=== PATIENT | female | born 1945 | race Caucasian/White ===

== ENCOUNTER 2017-07-01 17:03 | Inpatient (IN) | payer MEDICARE, BC ==
[~2017-07-01] VITALS: Ht 154.9 cm; Wt 46.3 kg
[2017-07-01] MEDS ORDERED: ONDANSETRON HCL/PF 4 MG/2 ML VIAL ONE (17:38)
[2017-07-01] MEDS ORDERED: MORPHINE SULFATE INJ 2 MG/ML DISP.SYRIN ONE (17:39)
--- NOTE | 2017-07-01 17:45 | NUR ---
PT REFUSES ALL MD ORDERS AND WANTS TO GO TO [facility]. MADE AWARE.
[2017-07-01] MEDS ORDERED: ONDANSETRON HCL/PF - ER 4 MG/2 ML VIAL IV ONE (18:00)
[2017-07-01] MEDS ORDERED: IV NS 0.9% 1,000 ML BAG IV ONE (18:00)
[2017-07-01] MEDS ORDERED: MORPHINE SULFATE INJ 2 MG/ML DISP.SYRIN IV ONE (18:00)
--- NOTE | 2017-07-01 18:10 | NUR ---
LAURA AT BS.
--- NOTE | 2017-07-01 18:18 | NUR ---
refused dvt study,dr medina aware
--- NOTE | 2017-07-01 18:20 | NUR ---
refused blood draw,dr medina aware
--- NOTE | 2017-07-01 18:42 | NUR ---
PAGEConstantine MONTE FOR CALL BACK TO [facility]
--- NOTE | 2017-07-01 18:59 | NUR ---
CALLED CHIVO AT [facility]. INFORMED HER DR MONTE IS WILLING TO ACCEPT PT AT [facility]. WAITING FOR CALL BACK.
--- NOTE | 2017-07-01 19:32 | NUR ---
PT REPORT RECIEVED FROM FELICITY HINKLE, PT ON MONITOR, IV PLACED AND LABS DRAWN LAB CALLED TO SALESPERSON [facility], PT FAMILY AT BEDSIDE, VSS WILL CONTINUE TO MONITOR.
--- NOTE | 2017-07-01 19:52 | NUR ---
PAGED ORTHO DISPLAY SPECIALIST DR RAMOS
--- NOTE | 2017-07-01 20:19 | NUR ---
LAB STATES BLOOD WAS NEVER RECIVED, PT REDRAWN AND LABS HANDED TO LAB WILL CONTINUE TO MONITOR.
--- NOTE | 2017-07-01 20:20 | NUR ---
PT STATES UNABLE TO PROVIDE URINE. PT REFUSES JENKINS. AWARE.
[2017-07-01] MEDS ORDERED: MAG HYDROX/AL HYDROX/SIMETH 30 ML UDC PO PRN (20:30)
[2017-07-01] MEDS ORDERED: MAGNESIUM HYDROXIDE 30 ML UDC PO PRN (20:30)
[2017-07-01] MEDS ORDERED: ONDANSETRON HCL/PF 4 MG/2 ML VIAL IVP PRN (20:30)
[2017-07-01] MEDS ORDERED: ACETAMINOPHEN 325 MG TABLET PO PRN (20:30)
[2017-07-01] MEDS ORDERED: Z GUARD REMEDY 2 OZ OINT TP PRN (20:30)
[2017-07-01] MEDS ORDERED: ZOLPIDEM TARTRATE 5 MG TABLET PO PRN (20:30)
[2017-07-01 20:31] LABS: BASOPHILS # (AUTO) 0.5 /CMM (0.0-0.2); BASOPHILS % (AUTO) 3.1 % (0.0-2.0); EOSINOPHILS # (AUTO) 0.2 /CMM (0.0-0.7); EOSINOPHILS % (AUTO) 1.2 % (0.0-6.0); HEMATOCRIT 42 % (33-45); HEMOGLOBIN 13.4 g/dL (11.5-14.8); LYMPHOCYTES # (AUTO) 0.6 /CMM (0.8-4.8); LYMPHOCYTES % (AUTO) 3.9 % (20.0-44.0); MEAN CORPUSCULAR HEMOGLOBIN 32 PG (26.0-33.0); MEAN CORPUSCULAR HGB CONC 32 g/dl (31.0-36.0); MEAN CORPUSCULAR VOLUME 99 fL (82-100); MONOCYTES # (AUTO) 1.3 /CMM (0.1-1.30); MONOCYTES % (AUTO) 8.5 % (2.0-12.0); NEUTROPHILS # (AUTO) 12.9 /CMM (1.8-8.9); NEUTROPHILS % (AUTO) 83.3 % (43.0-81.0); PLATELET COUNT (AUTO) 314 /CMM (150-450); RDW COEFFICIENT OF VARIATION 15.6 (11.5-15.0); RED BLOOD CELL COUNT(AUTO) 4.18 MIL/uL (4.0-5.2); WHITE BLOOD COUNT (AUTO) 15.5 K/uL (4.3-11.0)
[2017-07-01 20:49] LABS: CALCIUM, SERUM 8.5 mg/dL (8.5-10.1); CARBON DIOXIDE 30 mmol/L (21-32); CHLORIDE 89 mmol/L (98-107); CREATININE 1.5 mg/dL (0.6-1.3); GLUCOSE 105 mg/dL (74-106); POTASSIUM 4.7 mmol/L (3.5-5.1); SODIUM SERUM 125 mmol/L (136-145); UREA NITROGEN, BLOOD 43 mg/dL (7-18)
[2017-07-01 20:55] LABS: ALANINE AMINOTRANSFERASE 24 U/L (12-78); ALBUMIN 3.3 g/dL (3.4-5.0); ALKALINE PHOSPHATASE 116 U/L (46-116); ASPARTATE AMINOTRANSFERASE 33 U/L (15-37); BILIRUBIN,DIRECT 0.1 mg/dL (0.0-0.2); BILIRUBIN,TOTAL 0.5 mg/dL (0.2-1.0); LIPASE 225 U/L (73-393); TOTAL PROTEIN, SERUM 6.7 g/dL (6.4-8.2)
--- NOTE | 2017-07-01 21:16 | NUR ---
TELE 304-1
[2017-07-01 21:30] VITALS: BP 98/67
--- NOTE | 2017-07-01 21:30 | NUR ---
RN NOTES RECEIVED NEW ADMISSION FROM ER VIA [facility], ASSISTED BY 2 PERSONS, ALERT AND ORIENTED X3, WITH EPISODE OF FORGETFULNESS, WITH ACUTE DISTRESS FROM RIGHT HIP PAIN, NO SOB, NO RESPIRATORY DISTRESS, TOLERATING 2LPM VIA NC, 02 SAT 94%, LUNG SOUNDS ARE CLEAR, ABDOMEN SOFT AND NON-TENDER, ACTIVE BOWEL SOUNDS. PER PATIENT FELL DOWN 2 DAYS AGO WHEN GOING TO THE TOILET, FELL DOWN TO RIGHT SIDE. RIGHT LEG SHORTER THAN LEFT LEG, SCREAMS IN PAIN WHEN TURNING AND MOVING. EXPLAINED TO PATIENT WILL NEED JENKINS CATHETER TO MINIMIZE MOVEMENT TO RIGHT HIP. DR. LEMON AWARE OF ADMISSION, HAS RIGHT LOWER QUADRANT INFUSION PUMP WITH REMODULIN FOR PULMONARY ARTERIAL HYPERTENSION, NO OTHER HOME MEDICATION. NOTED RASHES TO FACE DOWN TO NECK, PER PATIENT FROM ALLERGIES TO MEDICATIONS, UNABLE TO SPECIFY. ORIENTED TO ROOM AND USE OF CALL LIGHT. WILL CONTINUE TO MONITOR.
[2017-07-01 22:00] VITALS: BP 98/67
[2017-07-01] MEDS ORDERED: IV NS 0.9% 1,000 ML BAG IV PRN (23:30)
[2017-07-01] MEDS: IV NS 0.9% 1,000 ML IV PRN (23:47)
--- NOTE | 2017-07-02 00:13 | NUR ---
RN NOTES JENKINS CATHETER FR 16 INSERTED, URINE OUTPUT OF 250 CC, CLEAR AND YELLOW URINE, PROCEDURE TOLERATED WELL.
[2017-07-02] MEDS ORDERED: MORPHINE SULFATE INJ 2 MG/ML DISP.SYRIN ONE (05:30)
[2017-07-02] MEDS: MORPHINE SULFATE INJ 2 MG/ML DISP.SYRIN IV PRN ×3 (05:32→14:56)
--- NOTE | 2017-07-02 05:51 | NUR ---
RN NOTES COMPLAINING OF PAIN OF 9/10 TO RIGHT HIP, GIVEN MORPHINE 2 MG IVP PRN, ON NC AT 2LPM, V/S WNL, WILL CONTINUE TO MONITOR.
[2017-07-02 05:52] VITALS: BP 105/71
--- NOTE | 2017-07-02 06:39 | NUR ---
RN NOTES PATIENT AWAKE AND ALERT, NO SOB, TOLERATING 2LPM VIA NC, PROVIDED PAIN MEDICATION FOR PAIN IN RIGHT HIP OF 10 AFTER MORPHINE PAIN WENT DOWN TO 7/10, COMPLAINING OF PAIN WHEN MOVING OR BEING TURNED. LEFT FA PERIPHERAL LINE IS PATENT AND INFUSING WELL WITH NS AT 100 CC/HR, JENKINS CATHETER DRAINING WELL, NEEDS ATTENDED, CALL LIGHT WITHIN REACH.
[2017-07-02 06:48] LABS: BASOPHILS # (AUTO) 0.1 /CMM (0.0-0.2); BASOPHILS % (AUTO) 0.5 % (0.0-2.0); EOSINOPHILS # (AUTO) 0.3 /CMM (0.0-0.7); EOSINOPHILS % (AUTO) 2.1 % (0.0-6.0); HEMATOCRIT 39 % (33-45); HEMOGLOBIN 12.7 g/dL (11.5-14.8); LYMPHOCYTES # (AUTO) 0.5 /CMM (0.8-4.8); LYMPHOCYTES % (AUTO) 3.6 % (20.0-44.0); MEAN CORPUSCULAR HEMOGLOBIN 33 PG (26.0-33.0); MEAN CORPUSCULAR HGB CONC 33 g/dl (31.0-36.0); MEAN CORPUSCULAR VOLUME 100 fL (82-100); MONOCYTES # (AUTO) 1.2 /CMM (0.1-1.30); MONOCYTES % (AUTO) 9.2 % (2.0-12.0); NEUTROPHILS # (AUTO) 10.8 /CMM (1.8-8.9); NEUTROPHILS % (AUTO) 84.6 % (43.0-81.0); PLATELET COUNT (AUTO) 271 /CMM (150-450); RDW COEFFICIENT OF VARIATION 16.6 (11.5-15.0); WHITE BLOOD COUNT (AUTO) 12.8 K/uL (4.3-11.0)
[2017-07-02 07:12] LABS: CALCIUM, SERUM 7.9 mg/dL (8.5-10.1); CARBON DIOXIDE 29 mmol/L (21-32); CHLORIDE 93 mmol/L (98-107); CREATININE 1.4 mg/dL (0.6-1.3); GLUCOSE 96 mg/dL (74-106); MAGNESIUM 2.4 mg/dL (1.8-2.4); PHOSPHORUS 4.7 mg/dL (2.5-4.9); POTASSIUM 5.2 mmol/L (3.5-5.1); SODIUM SERUM 130 mmol/L (136-145); UREA NITROGEN, BLOOD 39 mg/dL (7-18)
--- NOTE | 2017-07-02 07:30 | NUR ---
MS RN RECEIVED ON BED, AWAKE,ALERT,ORIENTED X3, NOT IN ANY FORM OF DISTRESS, AT BEDSIDE, REFUSING TO BE TURNED, S/P RIGHT HIP FX, DENIES PAIN AT THIS TIME, NOTED TO HAVE A MED INFUSION PUMP AT RIGHT UPPER ABDOMEN, JENKINS TO GRAVITY DRAINING YELLOWISH URINE OUTPUT, WILL MONITOR PATIENT'S CONDITION.
[2017-07-02 07:40] LABS: CHOLESTEROL 140 mg/dL (<200); HDL CHOLESTEROL 45 mg/dL (40-60); LDL 75 mg/dL (0-99); TRIGLYCERIDES 92 mg/dL (30-150)
[2017-07-02 08:00] VITALS: BP 99/59
--- NOTE | 2017-07-02 09:00 | NUR ---
ms barraza npo at this time, due meds given,tolerated well.
[2017-07-02] MEDS: IV NS 0.9% 1,000 ML IV PRN (09:31)
--- NOTE | 2017-07-02 11:00 | NUR ---
ms popped corn oven attendant on the case, family [facility].
[2017-07-02] MEDS: FUROSEMIDE 20 MG/2 ML VIAL IV SCH (11:07)
[2017-07-02] MEDS ORDERED: HYDR-3326 PO (11:19)
[2017-07-02] MEDS ORDERED: Morphine Sulfate Inj IV (11:19)
[2017-07-02] MEDS ORDERED: FLUT16SP16 NS (11:50)
[2017-07-02] MEDS ORDERED: ACET-73 PO (11:50)
[2017-07-02] MEDS ORDERED: CEPH500C2 PO (11:50)
[2017-07-02] MEDS ORDERED: FURO20TA4 PO (11:50)
[2017-07-02] MEDS ORDERED: DOCU-170 PO (11:50)
[2017-07-02] MEDS ORDERED: FOLI1TAB16 PO (11:50)
[2017-07-02] MEDS ORDERED: CEVI30CA4 PO (11:50)
[2017-07-02] MEDS ORDERED: HYDR-552 PO (11:50)
[2017-07-02] MEDS ORDERED: HYDR200T4 PO (11:50)
[2017-07-02] MEDS ORDERED: BENZ-13 PO (11:50)
[2017-07-02 11:53] LABS: CREATININE, URINE 41.2 MG/DL (30.0-125.0)
[2017-07-02 11:58] LABS: URINE SODIUM, RANDOM < 5 mmol/l (40-220)
--- NOTE | 2017-07-02 12:00 | NUR ---
ms barraza waiting for dr. desouza to see the patient. Addendum: 07/02/17 at 1605 by MYLA JEROME RN wrong patient entry.
[2017-07-02] MEDS ORDERED: POTA10CA43 PO (12:01)
[2017-07-02] MEDS ORDERED: OMEP20CA10 PO (12:01)
[2017-07-02] MEDS ORDERED: METO2.5T2 PO (12:01)
[2017-07-02] MEDS ORDERED: TREP1VIA IJ (12:01)
[2017-07-02] MEDS ORDERED: LEVO50TA8 PO (12:01)
[2017-07-02] MEDS ORDERED: ONDA4TAB5 PO (12:01)
[2017-07-02] MEDS ORDERED: NYST5ORA MM (12:01)
[2017-07-02] MEDS ORDERED: MACI10TA PO (12:01)
[2017-07-02] MEDS ORDERED: SPIR50TA3 PO (12:05)
[2017-07-02] MEDS ORDERED: TADA20TA31 PO (12:05)
[2017-07-02] MEDS ORDERED: VALA500T35 PO (12:05)
--- NOTE | 2017-07-02 13:00 | NUR ---
ornamental rail installer working on the transfer.
--- NOTE | 2017-07-02 13:00 | NUR ---
ms madi desouza came to see patient w/ order to go home today. prescription given to patient. Addendum: 07/02/17 at 1605 by MYLA JEROME RN wrong patient entry
--- NOTE | 2017-07-02 15:20 | NUR ---
ms rn patient went home w/ prescription , refused to take pictures w/ left arm wound.discahrge instructions given and well understood. Addendum: 07/02/17 at 1605 by MYLA JEROME RN wrong patient entry.
[2017-07-02 16:00] VITALS: BP 120/45
--- NOTE | 2017-07-02 16:00 | NUR ---
ms rn patient is ready for transfer, still waiting for the availability of bed at [facility], family is aware.
[2017-07-02] MEDS: HYDROCODONE/APAP 5/325MG 1 EACH TABLET PO PRN (16:47)
--- NOTE | 2017-07-02 17:15 | NUR ---
ms rn called krista for med recon order, ok to continue all home meds.
--- NOTE | 2017-07-02 17:54 | NUR ---
ms rn on bed still w/ pain, refused to be repositioned at times, is aware.
[2017-07-02] MEDS ORDERED: MORPHINE SULFATE INJ 2 MG/ML DISP.SYRIN IV PRN (19:30)
[2017-07-02] MEDS ORDERED: OPSUMIT PO SCH (19:30)
[2017-07-02] MEDS ORDERED: REMODULIN IJ SCH (19:30)
[2017-07-02] MEDS ORDERED: BENZONATATE 100 MG CAPSULE PO PRN (19:30)
[2017-07-02] MEDS ORDERED: ADCIRCA PO SCH (19:30)
[2017-07-02] MEDS ORDERED: CEVIMELINE PO SCH (19:30)
[2017-07-02] MEDS ORDERED: HYDROCODONE/APAP 5/325MG 1 EACH TABLET PO PRN ×2 (19:30)
[2017-07-02 20:00] VITALS: BP 101/61
--- NOTE | 2017-07-02 20:40 | NUR ---
MS/M1A1 TANK CREWMAN; RECEIVED PT REPORT FROM THE RN FOR CONTINUITY OF CARE. AT THIS TIME PT IN BED AWAKE , ALERT AND ORIENTED TALKING WITH PT'S AND SON. BREATHING NON LABORED. PT SLIGHT PALE COLOR AND AND HANDS ARE COOL TO TOUCH. WITH O2 2L NC ON. IVF ON PROGRESS. PT WHEN ASKED HOW SHE IS DOING SHE SAID WONDERFUL. WARM BLANKET APPLIED. FC INTACT WITH SOME YELLOW COLOR URINE OUTPUT. BED ON LOWER POSITION AND LOCKED FRO SAFETY. SIDE RAILS ARE UP FOR SAFETY. WILL CONTINUE TO MONITOR. CALL LIGHT WITHIN REACH.
--- NOTE | 2017-07-02 21:00 | NUR ---
MS/DINING SERVICE WORKER; CHARGE NURSE MADE ROUND TO THIS PT AND SHE TALKED TO THE PT AND THE .
[2017-07-02] MEDS: PANTOPRAZOLE 40 MG TABLET.DR PO SCH (22:21)
[2017-07-02] MEDS: CEPHALEXIN MONOHYDRATE 500 MG CAPSULE PO SCH (22:21)
[2017-07-03] MEDS: IV NS 0.9% 1,000 ML IV PRN (05:59)
--- NOTE | 2017-07-03 06:33 | NUR ---
MS/RESOURCE RECOVERY ENGINEER; NEW IV LINE STARTED BY THE RN. IVF RESUMED. SLEPT FAIRLY. REMAINED ON NPO AND OBSERVED. FC INTACT. BREATHING NON LABORED. AM CARE DONE BY THE DENTAL NURSE. CONTINUE TO MONITOR. WILL ENDORSE TO THE DAY SHIFT NURSE.
[2017-07-03 06:36] LABS: BASOPHILS % (AUTO) 0.2 % (0.0-2.0); HEMATOCRIT 42 % (33-45); HEMOGLOBIN 13.8 g/dL (11.5-14.8); LYMPHOCYTES # (AUTO) 0.6 /CMM (0.8-4.8); LYMPHOCYTES % (AUTO) 3.5 % (20.0-44.0); MEAN CORPUSCULAR HEMOGLOBIN 33 PG (26.0-33.0); MEAN CORPUSCULAR HGB CONC 33 g/dl (31.0-36.0); MEAN CORPUSCULAR VOLUME 100 fL (82-100); MONOCYTES # (AUTO) 1.3 /CMM (0.1-1.30); MONOCYTES % (AUTO) 8.2 % (2.0-12.0); NEUTROPHILS # (AUTO) 13.9 /CMM (1.8-8.9); NEUTROPHILS % (AUTO) 88.1 % (43.0-81.0); PLATELET COUNT (AUTO) 258 /CMM (150-450); RDW COEFFICIENT OF VARIATION 16.5 (11.5-15.0); RED BLOOD CELL COUNT(AUTO) 4.18 MIL/uL (4.0-5.2); WHITE BLOOD COUNT (AUTO) 15.8 K/uL (4.3-11.0)
[2017-07-03 06:53] LABS: ALANINE AMINOTRANSFERASE 559 U/L (12-78); ALBUMIN 3.3 g/dL (3.4-5.0); ALKALINE PHOSPHATASE 316 U/L (46-116); ASPARTATE AMINOTRANSFERASE 1307 U/L (15-37); CALCIUM, SERUM 8.5 mg/dL (8.5-10.1); CARBON DIOXIDE 25 mmol/L (21-32); CHLORIDE 94 mmol/L (98-107); CREATININE 1.7 mg/dL (0.6-1.3); GLUCOSE 77 mg/dL (74-106); MAGNESIUM 2.6 mg/dL (1.8-2.4); PHOSPHORUS 6.1 mg/dL (2.5-4.9); POTASSIUM 5.9 mmol/L (3.5-5.1); SODIUM SERUM 129 mmol/L (136-145); TOTAL PROTEIN, SERUM 6.5 g/dL (6.4-8.2); UREA NITROGEN, BLOOD 47 mg/dL (7-18)
[2017-07-03 08:00] VITALS: BP 106/69
[2017-07-03] MEDS ORDERED: VALACYCLOVIR HCL 500 MG TABLET PO SCH (09:00)
[2017-07-03] MEDS: FUROSEMIDE 20 MG/2 ML VIAL IV SCH ×2 (09:00→11:24)
[2017-07-03] MEDS ORDERED: HYDROXYCHLOROQUINE 200 MG TABLET PO SCH (09:00)
[2017-07-03] MEDS ORDERED: SODIUM POLYSTYRENE SULFONATE 15 G/60 ML BOTTLE PO ONE (09:00)
[2017-07-03] MEDS ORDERED: SPIRONOLACTONE 25 MG TABLET PO SCH (09:00)
[2017-07-03] MEDS ORDERED: LEVOTHYROXINE SODIUM 50 MCG TABLET PO SCH (09:00)
[2017-07-03] MEDS ORDERED: FOLIC ACID 1 MG TABLET PO SCH (09:00)
[2017-07-03] MEDS ORDERED: FUROSEMIDE 20 MG TABLET PO SCH (09:00)
[2017-07-03] MEDS: NYSTATIN (PYXIS) 500,000 UNIT/5 ML ORAL.SUSP PO SCH ×3 (10:32→17:54)
[2017-07-03] MEDS: FLUTICASONE PROPIONATE 16 GM BOTTLE NS SCH ×2 (10:32→17:53)
[2017-07-03] MEDS: CEPHALEXIN MONOHYDRATE 500 MG CAPSULE PO SCH (10:33)
[2017-07-03] MEDS: PANTOPRAZOLE 40 MG TABLET.DR PO SCH (10:33)
[2017-07-03] MEDS: DOCUSATE SODIUM 100 MG CAPSULE PO SCH ×2 (10:34→17:52)
[2017-07-03] MEDS: HYDROCODONE/APAP 5/325MG 1 EACH TABLET PO PRN ×2 (11:24→15:34)
[2017-07-03] MEDS ORDERED: CEFTRIAXONE 1 G in IV D5W 50 ML IV SCH (12:00)
[2017-07-03] MEDS ORDERED: diphenhydrAMINE HCL 25 MG CAPSULE PO PRN (14:30)
[2017-07-03 16:00] VITALS: BP_SYST 129; BP_SYST 96; BP_DIAS 58; BP_DIAS 84
[2017-07-03] MEDS ORDERED: METOLAZONE 2.5 MG TABLET PO SCH (17:00)
[2017-07-03] MEDS ORDERED: ADCIRCA 20 MG PO SCH (17:00)
[2017-07-03] MEDS ORDERED: OPSUMIT 10 MG PO SCH (17:00)
[2017-07-03 17:32] LABS: APPEARANCE,URINE CLEAR (CLEAR); BILIRUBIN,URINE NEGATIVE (NEGATIVE); BLOOD, URINE 1+ Ery/uL (NEGATIVE); KETONES,URINE NEGATIVE (NEGATIVE); LEUKOCYTE ESTERASE ,URINE NEGATIVE (NEGATIVE); NITRITE, URINE NEGATIVE (NEGATIVE); PH,URINE 5.5 (5.0-8.0); PROTEIN,URINE 1+ mg/dl (NEGATIVE); UGLUCOSE NEGATIVE (NEGATIVE); UROBILINOGEN,URINE 0.2 EU/dL (0.2)
[2017-07-03 17:35] LABS: COLOR,URINE DARK YELLOW (YELLOW)
[2017-07-03 17:40] LABS: BACTERIA,URINE Few /HPF (None Seen); SQUAMOUS EPITHELIAL CELL,UR Rare /HPF (None Seen); YEAST,URINE Rare /HPF (None Seen)
--- NOTE | 2017-07-03 18:55 | NUR ---
DAM WORKER NOTES PATIENT'S DISCHARGE ORDER RECEIVED AND CARRIED OUT. PATIENT IS BEING TRANSFERRED TO [facility] FOR POP. PATIENT VITAL SIGNS 105/80 AND 97% O2 UPON DISCHARGE. NO SIGNS AND SYMPTOMS OF DISTRESS. RIGHT HIP PAID 06/02. PATIENT ID BAND REMOVED. IV SITE AND JENKINS ARE IN PLACE PER [facility] RN REQUEST. REPORT GAVE TO MANAN FAIRCHILD AT [facility] @[phone] #2. POTASSIUM LEVEL OF 5.2 UPON DISCHARGE. ALL PERSONAL BELONGING WITH PATIENT AT TIME OF DISCHARGE. MEDICATION RETURNED TO PATIENT. ALL FORMS SIGNED AND PLACED ON THE CHART. PATIENT REFUSED TO HAVE HER PICTURE TAKEN UPON DISCHARGE. PATIENT WAS TRANSPORTED TO [facility] BY AMBULANCE AND 2 BODY FORMER.
[2017-07-03] MEDS ORDERED: HEPARIN SODIUM, PORCINE 5000 UNITS/1 ML VIAL SQ SCH (21:00)
== END 2017-07-03 18:40 | disposition short-term general hospital (02) | DRG 535 ==
LOC: ER 17:08 → MEDSG1 20:19 → TELE 20:19 → UNDOADMIN 20:19 → MED 07-02 01:50
PROVIDERS: ADMIT Family Medicine; ATTEND Family Medicine
DX: S72.001A Fracture of unspecified part of neck of right femur, initial encounter for closed fracture (principal); N17.0 Acute kidney failure with tubular necrosis; E44.1 Mild protein-calorie malnutrition; E87.1 Hypo-osmolality and hyponatremia; N39.0 Urinary tract infection, site not specified; E03.9 Hypothyroidism, unspecified; E86.9 Volume depletion, unspecified; E87.5 Hyperkalemia; I12.9 Hypertensive chronic kidney disease with stage 1 through stage 4 chronic kidney disease, or unspecified chronic kidney disease; I73.00 Raynaud's syndrome without gangrene; I27.2 Other secondary pulmonary hypertension; M34.9 Systemic sclerosis, unspecified; K21.9 Gastro-esophageal reflux disease without esophagitis; N18.9 Chronic kidney disease, unspecified; Z87.440 Personal history of urinary (tract) infections; Z96.649 Presence of unspecified artificial hip joint; W19.XXXA Unspecified fall, initial encounter; Y92.239 Unspecified place in hospital as the place of occurrence of the external cause; Z88.8 Allergy status to other drugs, medicaments and biological substances; D72.829 Elevated white blood cell count, unspecified
CPT/HCPCS: 36415; 71010-TC; 73502; 73552; 80048-TC; 80053-TC; 80061-TC; 80076-TC; 81000-TC; 82570-TC; 83690-TC; 83735-TC; 84100-TC; 84132-TC; 84300-TC; 85025-TC; 87081-TC; 87086-TC; A4606; J0696; J1940; J2270; J7030; J7060; Z7610